=== PATIENT | female | born 1955 | race Caucasian/White ===

== ENCOUNTER → 2019-01-10 | Outpatient (CLI) | payer OTHER ==
[~2019-01-10] MED LIST: ACET325T9 PO; ASCO10002 PO; ASPI-630 PO; ASPI325T11 PO; CALC-463 PO; CALC300T5 PO; CHOL10003 PO; CHOL500016 PO; COLE1TAB2 PO; DICY20TA3 PO; DIPH50CA PO; FERR325T14 PO; FEXO180T16 PO; LEVO25TA4 PO; LOSA-73 PO; MECL25TA3 PO; MELO15TA6 PO; MULT1TAB52 PO; OXYB5TAB7 PO; OXYC1TAB15 PO; SIMV20TA3 PO; [UNRECOGNIZED DRUG - OTHER] PO
[2019-01-10 09:29] LABS: BASO % 0 % (0-3); EOS # 0.2 x10^3/uL (0.0-0.7); EOS % 4 % (0-3); HEMATOCRIT 38.1 % (36.0-47.0); HEMOGLOBIN 12.6 g/dL (12.0-15.5); LYMPH # 2.1 x10^3/uL (1.0-4.8); LYMPH % 35 % (24-48); MEAN CORPUSCULAR HEMOGLOBIN 30 pg (25-35); MEAN CORPUSCULAR HGB CONC 33 g/dL (31-37); MEAN CORPUSCULAR VOLUME 92 fL (79-100); MONO # 0.4 x10^3/uL (0.0-1.1); MONO % 7 % (0-9); NEUT # 3.3 x10^3uL (1.8-7.7); NEUT % 55 % (31-73); PLATELET COUNT 312 x10^3/uL (140-400); RED BLOOD COUNT 4.15 x10^6/uL (3.50-5.40); RED CELL DISTRIBUTION WIDTH 12.8 % (11.5-14.5)
[2019-01-10 09:34] LABS: PROTHROMBIN TIME PATIENT 12.4 SEC (11.7-14.0)
[2019-01-10 09:52] LABS: ALBUMIN 3.9 g/dL (3.4-5.0); CALCIUM 9.2 mg/dL (8.5-10.1); CREATININE 0.9 mg/dL (0.6-1.0); GFR 63.7; POTASSIUM 3.9 mmol/L (3.5-5.1)
--- NOTE | 2019-01-10 13:17 | EKG ---
[facility] [address] [place] [address] Test Date: 2019-01-10 Test Time: 12:57:32 Pat Name: TERESA FLOWERS Department: Room: Gender: F Waiter/Waitress Second Class: : 1955 Requested By: CONNIE HERNANDEZ Order Number: [id number] Reading MD: Adrian Hayes MD Measurements Intervals [place] Rate: 77 P: 54 CA: 162 QRS: 21 QRSD: 78 T: 47 QT: 368 QTc: 418 Interpretive Statements SINUS RHYTHM Electronically Signed On 01-10-2019 15:45:25 CDT by Adrian Hayes MD
[2019-01-10 14:03] LABS: BILIRUBIN,URINE NEGATIVE (NEG); CLARITY,URINE CLEAR; COLOR,URINE YELLOW; NITRITE,URINE NEGATIVE (NEG); PH,URINE 7.5; PROTEIN,URINE NEGATIVE (NEG-TRACE); UROBILINOGEN,URINE 0.2 mg/dL (0.2 mg/dL)
[2019-01-10 14:15] LABS: BACTERIA,URINE 0 /HPF (0-FEW); RBC,URINE 0 /HPF (0-2); SQUAMOUS EPITHELIAL CELL,UR FEW /LPF; WBC,URINE OCC /HPF (0-4)
--- NOTE | 2019-01-10 14:26 | RAD ---
AP and Lateral Views of the Chest 01/10/2019 8:05 AM Indication: PRE OP FOR RIGHT KNEE REPLACMENT ON 02/01/19
HX OF A FIB PATIENT STATES TREATED WITH ABLATION, HX OF HYPERTENSION Comparison: Chest radiograph October 20, 2008 Findings: There is no focal consolidation or infiltrate identified. The cardiomediastinal silhouette is within normal limits. There is no evidence of pneumothorax or pleural effusion. No acute osseous abnormalities are identified. Impression: No evidence of acute cardiopulmonary process. Electronically signed by: Steven Waldron MD (01/10/2019 2:24 PM) [id number]
== END | disposition home or self-care (01) ==
LOC: SURGPAT 14:01
PROVIDERS: ATTEND Orthopaedic Surgery
DX: Z01.818 Encounter for other preprocedural examination (principal); M17.11 Unilateral primary osteoarthritis, right knee; I10 Essential (primary) hypertension
CPT/HCPCS: 36415; 71046; 80048; 81001; 82040; 82306; 85025; 85610; 85651; 85730; 87641; 93005

== ENCOUNTER 2019-02-01 05:53 | Inpatient (IN) | payer OTHER ==
--- NOTE | 2019-01-31 17:49 | PDOC1 ---
History and Physical Date of Admission Date of Admission DATE: 01/31/19 TIME: 17:42 History of Present Illness History of Present Illness 63-year-old woman with bilateral knee pain, right much greater than left, for many years. She said she's had trouble with chondromalacia since her teenage years, but in the last year has had giving way episodes, and fallen down. Sometimes it feels like there is an explosion or a bomb going off in her knee. She's tried Euflexxa injections and steroid injections which helped initially but are no longer helping. She recently had an MRI that shows evidence of osteoarthritis with osteophytes, and cartilage loss as well as a possible degenerative meniscus tear. She was here with her daughter who is also my patient, and the daughter had left knee arthroscopy. (The daughter who is my patient might be Valeria Tolentino). Past Medical History Past Medical History Hypertension. Hyperlipidemia. IBS. Low back pain. Asthma. Arthritis. Atrial fibrillation. vitamin D deficiency. Bilateral chondromalacia Patella. Achilles Injury Rt Foot 1988. Plantar Facitis and Heel spurs . Scoliosis left thoracic/lumbar . Frequent Heartburn. Stress incontinence. Abdominal pain upper Right Quadrant with fatty foods. Fatty Liver with no know cause. Shoulder injury 2008. Mild Carpal Tunnel Syndrome. Injury to right carpometacarpal and wrist joints 2011. Epidermal cyst, Right Big Toe, removed in Jun 2017 and Nov 2018. Tendon injury to Right foot August 2018. Hearing Loss and Tinnitus bilateral ears. Borderline low thyroid. Chronic Dry Eyes, Double vision in each eye. Chronic Sinus Infections. Obesity. Headaches. Hyperopia, presbyopia, beginning cataracts. Tight Hamstrings both legs. History of recurren brochitis, Pneumonia. Seasonal Allergies. Past Surgical History Past Surgical History vein stripping tonsillectomy & adenoidectomy LAVH, BSO toenail removal big toes bilateral breast reduction ablation for Proxysmal Atrial Fibrillation stapedectomy iwth implant left ear 2013 Release plantar Fascitits and heel spur scraping 2017 Family History Family History: Heart Disease Current Medications Current Medications Current Medications Ondansetron HCl (Zofran) 4 mg PRN Q6HRS PRN IV NAUSEA/VOMITING; Start 02/01/19 at 07:00; Stop 02/01/19 at 20:00 Fentanyl Citrate (Fentanyl 2ml Vial) 25 mcg PRN Q5MIN PRN IV MILD PAIN; Start 02/01/19 at 07:00; Stop 02/01/19 at 20:00 Fentanyl Citrate (Fentanyl 2ml Vial) 50 mcg PRN Q5MIN PRN IV MODERATE TO SEVERE PAIN; Start 02/01/19 at 07:00; Stop 02/01/19 at 20:00 Morphine Sulfate (Morphine Sulfate) 1 mg PRN Q10MIN PRN IV SEVERE PAIN; Start 02/01/19 at 07:00; Stop 02/01/19 at 20:00 Ringer's Solution 1,000 ml @ 30 mls/hr Q24H IV ; Start 02/01/19 at 07:00; Stop 02/01/19 at 18:59 Lidocaine HCl (Xylocaine-Mpf 1% 2ml Vial) 2 ml PRN 1X PRN ID IV START; Start 02/01/19 at 07:00; Stop 02/01/19 at 20:00 Hydromorphone HCl (Dilaudid) 0.5 mg PRN Q10MIN PRN IV SEV PAIN, Second choice; Start 02/01/19 at 07:00; Stop 02/01/19 at 20:00 Prochlorperazine Edisylate (Compazine) 5 mg PACU PRN PRN IV NAUSEA, MRX1; Start 02/01/19 at 07:00; Stop 02/01/19 at 20:00 Morphine Sulfate 5 mg/Ketorolac Tromethamine 30 mg/Ropivacaine 60 ml/Epinephrine HCl 0.5 mg/Sodium Chloride 100 ml @ 100 mls/hr 1X ONCE INT ART ; Start 02/01/19 at 06:00; Stop 02/01/19 at 06:59 Active Scripts Active Reported [selenium husk] 1 Cap PO DAILY Dicyclomine Hcl 20 Mg Tablet 20 Mg PO PRN QID PRN Ferrous Sulfate 325 Mg Tablet 325 Mg PO DAILY Tums (Calcium Carbonate) 300 Mg Tab.chew 300 Mg PO PRN DAILY PRN Calcium + Vitamin D3 Gummies (Calcium Phosphate Trib/Vit D3) 1 Each Tab.chew 1 Each PO HS Simvastatin 20 Mg Tablet 20 Mg PO HS Oxybutynin Chloride 5 Mg Tablet 2.5 Mg PO BID Fexofenadine Hcl 180 Mg Tablet 180 Mg PO DAILY Losartan Potassium 50 Mg Tablet 25 Mg PO DAILY Diphenhydramine Hcl 50 Mg Capsule 25 Mg PO QHS Levothyroxine Sodium 25 Mcg Tablet 0.5 Tab PO DAILYAC Tylenol (Acetaminophen) 325 Mg Tablet 1,000 Mg PO BID Vitamin D3 (Cholecalciferol (Vitamin D3)) 1,000 Unit Tablet 3,000 Unit PO HS Vitamin D3 (Cholecalciferol (Vitamin D3)) 5,000 Unit Tablet 6,000 Unit PO DAILY Vitamin C (Ascorbic Acid) 1,000 Mg Tablet 1,000 Mg PO DAILY Multivitamins (Multivitamin) 1 Each Tablet 1 Each PO DAILY Aspirin 81 Mg Tab.chew 81 Mg PO HS Colestipol Hcl 1 Gm Tablet 1 Gm PO PRN TID PRN Meclizine Hcl 25 Mg Tablet 25 Mg PO PRN PRN Allergies Allergies: Coded Allergies: minocycline (Verified Allergy, Severe, 01/10/19) difficulty breathing rhubarb (Verified Allergy, Severe, Swelling, 01/10/19) tetracycline (Verified Allergy, Severe, 01/10/19) cant breathe adhesive tape (Verified Allergy, Intermediate, Rash, 01/11/19) blisters amoxicillin (Verified Allergy, Intermediate, Hives, 01/10/19) latex (Verified Allergy, Intermediate, Rash, 01/11/19) blistyers loratadine (Verified Allergy, Intermediate, Rash, 01/11/19) nickel (Verified Allergy, Intermediate, Rash, 01/11/19) I S O L A T I O N *CONTACT* (Verified Allergy, Unknown, 01/11/19) mrsa Sulfa (Sulfonamide Antibiotics) (Verified Adverse Reaction, Intermediate, flu like symptoms, 01/11/19) flu like symptoms cetirizine (Verified Adverse Reaction, Intermediate, palpitations, 01/11/19) aplpitations fluticasone (Verified Adverse Reaction, Intermediate, 01/10/19) develops secondary infection furosemide (Verified Adverse Reaction, Intermediate, Nausea and Vomiting, 01/10/19) nebivolol (Verified Adverse Reaction, Intermediate, 01/10/19) muscle weakness-loss of balance prednisone (Verified Adverse Reaction, Intermediate, 01/10/19) develops secondary infection ROS Review of System CONSTITUTIONAL: Fever denies. Chills denies. Weight gain denies. Weakness none. weight loss denies. Fatigue none. OPHTHALMOLOGY: Blurred vision both eyes double vision, blurred vision. Double vision denies. Change in vision none. ENT: Hearing loss bilateral ears. Change in voice denies. Rhinorrhea none. CARDIOLOGY: Palpitations occasionally. Shortness of breath denies. Chest pain denies. GASTROENTEROLOGY: Diarrhea denies. Vomiting none. Dysphagia none. UROLOGY: Voiding normally yes. Hematuria none. MUSCULOSKELETAL: Chronic back or neck pain admit. Swelling of the feet, hands, ankles and /or legs admits. Joint pain ankle, knee, foot, bilateral. DERMATOLOGY: Rash denies. Lumps none. NEUROLOGY: Dizziness/lightheadedness admits. Double vision, temporary blindness admits. Tingling/numbness none. PSYCHOLOGY: Change in mood or personality denies. Memory loss none. ENDOCRINOLOGY: Obesity denies. Fatigue none. Weight loss none. HEMATOLOGY/LYMPH: Hepatitis denies. Enlarged lymph nodes denies. Physical Exam General: Alert, Cooperative HEENT: Atraumatic Lungs: Normal air movement Heart: RRR Extremities: No clubbing, No cyanosis, Normal pulses Skin: No rashes, No significant lesion Neuro: Normal speech, Sensation intact, Other (RIGHT knee shows normal alignment, no masses. There is no effusion. There is tenderness at the medial joint line. Marco A's test is positive. There is medial joint line pain with deep flexion and especially with rotation of the tibia. There is severe tenderness of the lateral aspect of the patella. The lateral tibiofemoral joint line shows no tenderness. Range of motion is 0-135 degrees. There is trace patellofemoral crepitus. The knee is stable to varus and valgus stress without subluxation or laxity. The ACL feels intact on Zachary testing. Muscle strength is normal (5/5) for quadriceps and hamstrings, and muscle tone is normal. The skin is normal with no scars, rashes, lesions or ulcers. Light touch sensation is intact. No edema and no varicosities. Dorsalis pedis pulse is intact and capillary refill is normal.) Images Images MRI right knee images reviewed independently from 11/02/18. There appears to be an extensive horizontal medial meniscus tear on series 7 image 10. Similar horizontal signal, probably involves the undersurface, on series 4 image 6. There is significant femoral cartilage loss on series 7 image 15. The axial images show significant patellar chondral malacia and cyst formation in the patella. Medial and lateral femoral and tibial osteophytes are seen on series 6 image 13. VTE Prophylaxis Ordered VTE Prophylaxis Devices: Yes VTE Pharmacological Prophylaxi: Yes Assessment/Plan Assessment/Plan We talked about options for treatment for her knee pain. We discussed arthroscopic meniscectomy, vs TKA. She does have a degenerative medial meniscus tear. She also has knee osteoarthritis. She is 63 years old, and now having giving way episodes of the knee. We discussed arthroscopy which would have risks of further progression of arthritis and need for further surgery specifically would likely eventually need a joint replacement, sometimes within a year of the arthroscopy, more likely about 5 years later. We discussed total knee arthroplasty, and foregoing any significant complications is less likely to need additional surgery. she has a nickel sensitivity especially wearing earrings, and so I would use an Oxinium component, with XLPE which is marketed as a "30 year knee". it's not been out for 30 years but the lab tests seem to indicate it should last many years and presumably for the rest of her life. We discussed the potential risks of infection, neurovascular injury, bleeding, blood clots, need for revision surgery, or other potential surgical or anesthetic complications. All her questions about knee replacement surgery were answered and she desires to proceed mutually convenient date. She had a prior cardiac ablation for atrial fibrillation and is no longer on treatment for A. fib but probably needs cardiac clearance. She has a CT scan planned for her sinuses, and if she has sinus surgery we will need to manage her antibiotics and perioperative care appropriately, around any potential sinus surgery. She had a vein stripping remotely, but denies any history of blood clots. CONNIE HERNANDEZ MD Jan 31, 2019 17:49
[~2019-02-01] VITALS: Ht 165.1 cm; Wt 108.4 kg
[2019-02-01] VITALS (8 sets, daily range): BP systolic 113–128; BP diastolic 52–72
[~2019-02-01 05:53] MED LIST changes: -ASPI325T11 PO; -MELO15TA6 PO; -OXYC1TAB15 PO; +TOBRAMYCIN POWDER 1.2 GM VIAL. ONE; +VANCOMYCIN 1 GM VIAL. ONE
[2019-02-01] MEDS ORDERED: TRANEXAMIC ACID 1,000 MG in IV NS 50ML -- 1ST BAG INJ ONE (06:00)
[2019-02-01] MEDS ORDERED: MORPHINE SULFATE 5 MG, KETOROLAC 30MG VIAL 30 MG, ROPIVacaine 0.5% PF 60 ML, EPINEPHrin... INT ART ONE ×5 (06:00)
[2019-02-01] MEDS ORDERED: CLINDAMYCIN 900MG PREMIX 50 ML IV PRN (06:00)
[2019-02-01] MEDS ORDERED: MELOXICAM 7.5 MG TABLET PO PRN (06:00)
[2019-02-01] MEDS ORDERED: MELO15TA6 PO (06:39)
[2019-02-01] MEDS ORDERED: SCOPOLAMINE 1.5MG PATCH. TD ONE ×2 (06:44→07:00)
[2019-02-01] MEDS: HYDROcodone/APAP 7.5/325MG 1 TAB TABLET PO PRN ×2 (06:46→12:49)
[2019-02-01] MEDS ORDERED: PROPOFOL 20 ML IV ONE (06:49)
[2019-02-01] MEDS ORDERED: LIDOCAINE 2% PF 5 ML VIAL. ONE (06:49)
[2019-02-01] MEDS ORDERED: ONDANSETRON PF 4 MG/2 ML VIAL. ONE (06:49)
[2019-02-01] MEDS ORDERED: DEXAMETHASONE SOD PHOS 4 MG/ML VIAL ONE ×2 (06:49→07:59)
[2019-02-01] MEDS ORDERED: fentaNYL PF VIAL 100 MCG/2 ML VIAL ONE ×3 (06:49→10:28)
[2019-02-01] MEDS ORDERED: MIDAZOLAM HCL/PF 2 MG/2 ML VIAL. ONE (06:49)
[2019-02-01] MEDS ORDERED: MORPHINE SULFATE 2 MG/ML VIAL. IV PRN ×2 (07:00→10:00)
[2019-02-01] MEDS ORDERED: SCOPOLAMINE 1.5MG PATCH. TD SCH (07:00)
[2019-02-01] MEDS ORDERED: HYDROmorphone 2 MG/ML VIAL IV PRN (07:00)
[2019-02-01] MEDS ORDERED: IV RINGERS,LACTATED 1000ML 1,000 ML IV SCH (07:00)
[2019-02-01] MEDS ORDERED: LIDOCAINE 1% PF 2 ML VIAL. ID PRN (07:00)
[2019-02-01] MEDS ORDERED: ONDANSETRON PF 4 MG/2 ML VIAL. IV PRN (07:00)
[2019-02-01] MEDS ORDERED: fentaNYL PF VIAL 100 MCG/2 ML VIAL IV PRN ×3 (07:00→10:00)
[2019-02-01] MEDS ORDERED: PROCHLORPERAZINE 10 MG/2 ML VIAL. IV PRN (07:00)
[2019-02-01] MEDS: VANCOMYCIN 1GM IVPB FOR OMNI 250 ML IV PRN ×2 (07:47)
[2019-02-01] MEDS ORDERED: ePHEDrine PF IN SALINE 50 MG/10 ML SYRINGE. IV ONE (07:49)
[2019-02-01] MEDS ORDERED: TRANEXAMIC ACID 1,000 MG in IV NS 50ML -- 2ND BAG INJ ONE (08:00)
[2019-02-01] MEDS ORDERED: hydrALAZINE 20 MG/ML VIAL. ONE (08:55)
--- NOTE | 2019-02-01 09:52 | PDOC4 ---
Operative Note Operative Note Date of Procedure: February 01, 2019 Pre-Op Diagnosis: M17.11 Unilateral primary osteoarthritis, right knee Post-Op Diagnosis: same Procedure: CPT 14463 right total knee arthroplasty with patella resurfacing Surgeon: Connie Miles MD Quality Controller: OLIVIA Nicholson Anesthesia: General EBL: 100 mL Specimens Obtained: right knee bone and soft tissue Complications: none Implant Company: [employer] Drains: hemovac plus pain catheter Tourniquet time: 59 Minutes Tourniquet Pressure: 350 mm Hg Indications for Procedure: Arthritis pain unrelieved by nonoperative management including cortisone injections. She had an MRI which showed a degenerative meniscus tear, and primary osteoarthritis. We discussed arthroscopic management with the risk of progression of arthritis requiring ultimate total knee replacement later in life, perhaps in 5-10 years, sometimes sooner. She did not want to take the chance that she would need a second surgery after arthroscopy, and wants to proceed with total knee arthroplasty now rather than later in life. Findings: Osteoarthritis, with full thickness cartilage loss and eburnated bone at the patellofemoral joint, moderate cartilage loss at the medial femoral condyle and moderate cartilage loss at the lateral tibial articular surface. Implants used: Size 4 right bicruciate stabilized Journey II BCS Oxinium femoral component, size 4 right Journey nonporous tibial baseplate, size 3-4 10 mm right Journey II BCS XLPE articular insert, 35 mm oval Ariane II resurfacing patellar component Procedure in Detail: The patient was identified in the preoperative holding area, and the correct right lower extremity was marked by me. The patient was taken to the operating room where the patient was anesthetized by the Department of Anesthesia. Preoperative antibiotics were given intravenously. Tranexamic acid 1 g was given intravenously for intraoperative hemostasis. A "time-out" procedure was performed. The patient was positioned supine on the operative table with a tourniquet on the upper right thigh. The right lower limb was thoroughly scrubbed, then sterile surgical prep solution was applied, and the limb was draped in sterile fashion. An impervious stockinet and adhesive drape were used such that the skin was entirely covered. An Maradiaga leg bob was used. The operating team wore personal exhaust-ventilated hoods. The limb exsanguinated with an Esmarch bandage, and the tourniquet was inflated. A midline skin incision was made with a scalpel using the patella and tibial tubercle as landmarks. Electrocautery was used for hemostasis. My assistant center director used rake retractors. A medial parapatellar arthrotomy incision was used with extension into the distal quadriceps tendon. The patella was retracted laterally and Hohmann retractors were now used by my assistant center director. Excess synovium, the menisci, and the cruciate ligaments were resected sharply. The patella was assessed and excess s ynovium and osteophytes around the patellar articulation were removed. The patella was measured with a caliper, cut freehand with a saw using caliper measurements, sized, and then drilled for an oval three-pegged patella component. A periarticular multimodal ropivacaine anesthetic injection was used in the suprapatellar pouch and distal quadriceps muscle. Whitesides's line and the transepicondylar axis were marked on the femur. An intra-medullary 5 degree cutting guide was pinned to the femur, and a distal femoral cut was made with an oscillating saw. An additional 2 mm resection was used due to the deep femoral sulcus, and deficient condyle. My assistant center director held Hohmann retractors and an [employer] retractor to protect the medial and lateral collateral ligaments, the patellar tendon, the skin and the other soft tissues. A posterior referencing guide was applied with external rotation of 3 to match Whitesides line. A 5-in-1 Journey II cutting guide was then applied and pinned to the femur. The posterior, anterior, and all chamfer cuts were made with the oscillating saw. An extramedullary guide was pinned to the tibia and rotational alignment and the planned resection thickness assessed. An external alignment nyla was used to verify the planned cut in the varus-valgus plane and regarding posterior slope referencing the tibial tubercle, the tibial shaft, the ankle joint, and the s econd metatarsal. The upper tibia was cut made with an oscillating saw. My assistant center director held Hohmann retractors and a posterior cruciate ligament retractor to protect the medial and lateral collateral ligaments, the patellar tendon, the skin, the peroneal nerve and the other soft tissues. The upper tibia was sized with a trial baseplate. The posterior compartment was cleared of osteophytes and loose bodies. The periarticular anesthetic injection was used in the posterior compartment. The box cut for a posterior stabilized component was made. A preliminary reduction was performed with a trial femur, trial tibial baseplate and trial polyethylene. Soft-tissue balancing was now performed, and extension and rotation of the alignments was checked using a guide nyla in the tibial trial and a guide pin in the femur. A medial release was required, using a 10 blade scalpel, and a Vincent elevator to elevate the medial structures from the upper medial tibia. The stability was assessed using different thicknesses of tibial articular surface to find satisfactory stability and good range of motion. The rotation of the tibial component was marked on the upper tibia. Final trial reduction was now performed verifying patella tracking and tibiofemoral stability and alignment. The tibia preparation was completed with a drill, saw, and fin punch at the previously noted rotation. The final implants were verified and opened. Outer gloves were changed by the operating team. The bone cuts were washed thoroughly with the [employer] ([employer] InterPulse device and dried. Two packages of Perez [employer] Nephew Rally HV bone cement were mixed in powdered form with Vancomycin 1gm and Tobramycin 1.2 gm, and then vacuum-mixed with the monomer, and placed into a cement gun. The cut surfaces of the bone were tho roughly dried with Mast-tip suction and with laparotomy sponges for cement interdigitation. The final components were cemented into place. The knee was kept at full extension while the cement hardened, and excess cement was removed. A Betadine lavage was used throughout the surgical exposure, and allowed to sit in contact with the exposed joint surfaces for three minutes while the cement hardened. Tranexamic acid 1 g was redosed intravenously for additional intraoperative hemostasis. The tourniquet was released, and electrocautery was used for hemostasis. A final periarticular anesthetic injection was used for pain relief. A final check of [id number] and stability was made, and the polyethylene implant final size was chosen. The polyethylene implant was secured to the tibial baseplate, and the knee was reduced a final time and range of motion and stability was confirmed. Thorough irrigation was used. Hemovac and pain catheter were used.The arthrotomy was closed with interrupted [id number] #1 PDS suture. The arthrotomy incision was then run with #1 STRATAFIX Symmetric PDS Plus Knotless suture. The subcutaneous tissues were reapproximated initially with 2-0 PDS . Next the subcuticular layer was reapproximated in a running fashion with #3-0 Stratafix suture by my assistant center director. The skin incision was then covered and reinforced with Acticoat, followed by a NADINE single use negative pressure wound therapy dressing Soft roll and an Kishan wrap were applied. Needle and sponge counts were correct. There were no apparent complications. The patient returned to the recovery room in stable condition. CONNIE MILES MD Feb 01, 2019 09:52
[2019-02-01] MEDS ORDERED: METOCLOPRAMIDE HCL 10 MG/2 ML VIAL. IV PRN (10:00)
[2019-02-01] MEDS ORDERED: COLESTIPOL HCL 1 GM TABLET PO PRN (10:00)
[2019-02-01] MEDS ORDERED: ZOLPIDEM 5 MG TABLET. PO PRN (10:00)
[2019-02-01] MEDS ORDERED: 0.9 % SODIUM CHLORIDE 10 ML DISP.SYRIN. IV PRN (10:00)
[2019-02-01] MEDS ORDERED: diphenhydrAMINE 50 MG/ML VIAL IV PRN (10:00)
[2019-02-01] MEDS ORDERED: PROCHLORPERAZINE 5 MG TABLET. PO PRN (10:00)
[2019-02-01] MEDS ORDERED: MORPHINE SULFATE 4 MG/ML VIAL. IV PRN (10:00)
[2019-02-01] MEDS ORDERED: DEXTROSE 50% 25 GM / 50ML DISP.SYRIN. IV PRN (10:00)
[2019-02-01] MEDS ORDERED: CALCIUM CARBONATE 500 MG TAB.CHEW PO PRN (10:30)
[2019-02-01] MEDS: fentaNYL PF VIAL 100 MCG/2 ML VIAL IV PRN ×2 (10:38→11:14)
[2019-02-01] MEDS ORDERED: DICYCLOMINE HCL 10 MG CAPSULE PO PRN (10:45)
--- NOTE | 2019-02-01 11:30 | NUR ---
Arrived to unit by bed from PACU. Alert and oriented x's 4. Very [place] wears hearing aids and family has them. No c/o at this time. Right total knee dressing d/i with NADINE, IAC and hemovac drain intact. O2 at 2l per n/c. IVF's intact and infusing. ELISSA and SCD on left leg and INÉS on right foot. Oriented to room and controls with side rails up x's 2 with call light in reach. Spouse and daughter at bedside. Cont. monitor.
--- NOTE | 2019-02-01 11:34 | RAD ---
Examination: 2 views of the right knee HISTORY: History of total knee replacement COMPARISON: None available. FINDINGS: Total knee arthroplasty changes in normal alignment. Postoperative air identified about the knee joint with postsurgical changes identified in the posterior patella. A drain tubing projects in the knee joint. IMPRESSION: Total knee arthroplasty changes in normal alignment Electronically signed by: Kang Irvin MD (02/01/2019 10:43 AM) [id number]
[2019-02-01] MEDS ORDERED: MECLIZINE HCL 12.5 MG TABLET. PO PRN (12:00)
[2019-02-01] MEDS: ONDANSETRON ODT 4 MG TAB.RAPDIS. PO SCH ×2 (12:00→17:29)
[2019-02-01] MEDS: ONDANSETRON PF 4 MG/2 ML VIAL. IV SCH ×2 (12:00→17:35)
[2019-02-01] MEDS: CLINDAMYCIN 900MG PREMIX 50 ML IV SCH ×2 (13:47→20:19)
[2019-02-01] MEDS: oxyCODONE/APAP 5/325 1 TAB TABLET PO PRN ×2 (14:54→22:25)
[2019-02-01] MEDS: KETOROLAC 30MG VIAL 30 MG, BUPIVACAINE MPF 0.25% 20 ML, EPINEPHrine 0.5 MG in TOTAL VOL... INT ART SCH (17:29)
[2019-02-01] MEDS: FERROUS SULFATE 325 MG TABLET. PO SCH (17:29)
[2019-02-01] MEDS: IV NORMAL SALINE 1000ML BAG 1,000 ML IV SCH (20:21)
[2019-02-01] MEDS ORDERED: diphenhydrAMINE HCL 25 MG CAPSULE PO SCH (21:00)
[2019-02-01] MEDS: OXYBUTYNIN CHLORIDE 5 MG TABLET PO SCH (21:23)
[2019-02-01] MEDS: SIMVASTATIN 20 MG TABLET PO SCH (21:24)
[2019-02-01] MEDS: ASPIRIN ENTERIC COATED 325 MG TABLET.DR. PO SCH (21:24)
[2019-02-01] MEDS: CHOLECALCIFEROL (VITAMIN D3) 1,000 UNIT TABLET PO SCH (21:24)
[2019-02-01] MEDS: CALCIUM CARB/VIT D3 500/200 TABLET. PO SCH (21:24)
[2019-02-02] MEDS: CLINDAMYCIN 900MG PREMIX 50 ML IV SCH (01:32)
--- NOTE | 2019-02-02 02:54 | NUR ---
when assisting patient to bathroom found hemovac in bed tip intact
[2019-02-02 03:00] VITALS: BP 105/51
[2019-02-02] MEDS: KETOROLAC 30MG VIAL 30 MG, BUPIVACAINE MPF 0.25% 20 ML, EPINEPHrine 0.5 MG in TOTAL VOL... INT ART SCH (05:35)
[2019-02-02] MEDS: LEVOTHYROXINE 25 MCG TABLET. PO SCH (05:35)
[2019-02-02] MEDS: ONDANSETRON PF 4 MG/2 ML VIAL. IV SCH ×2 (06:00)
[2019-02-02] MEDS: ONDANSETRON ODT 4 MG TAB.RAPDIS. PO SCH ×2 (06:00)
[2019-02-02] MEDS ORDERED: MAGNESIUM HYDROXIDE 2,400 MG/30 ML ORAL.SUSP. PO PRN (06:00)
[2019-02-02 06:48] VITALS: BP 105/55
--- NOTE | 2019-02-02 07:53 | PDOC ---
ORTHO PROGRESS NOTES Subjective Patient doing well sitting up in chair at bedside with no major complaints of pain at this time. Post-op Day: 1 Procedure R TKA Vitals Vital Signs Date Time Temp Pulse Resp B/P (MAP) Pulse Ox O2 Delivery O2 Flow Rate FiO2 02/02/19 06:48 98.6 70 105/55 (72) 96 Room Air 98.6 02/01/19 23:30 18 02/01/19 18:18 2.0 Notes awake and alert Assessment and Plan POD #1 S/P R TKA motor and sensory intact distally dressing dry and intact PT today JAYDON LAZARO APRN February 02, 2019 07:53
[2019-02-02] MEDS: SENNOSIDES/DOCUSATE 8.6/50MG TABLET. PO SCH (08:41)
[2019-02-02] MEDS: ASCORBIC ACID 500 MG TABLET PO SCH (08:41)
[2019-02-02] MEDS: PSYLLIUM HUSK (SUGAR FREE) 1 PKT PACKET PO SCH (08:41)
[2019-02-02] MEDS: OXYBUTYNIN CHLORIDE 5 MG TABLET PO SCH ×2 (08:42→20:54)
[2019-02-02] MEDS: FERROUS SULFATE 325 MG TABLET. PO SCH ×2 (08:42→16:05)
[2019-02-02] MEDS: MELOXICAM 7.5 MG TABLET PO SCH (08:42)
[2019-02-02] MEDS: MULTIVITAMIN with MINERAL TABLET. PO SCH (08:42)
[2019-02-02] MEDS: CHOLECALCIFEROL (VITAMIN D3) 5,000 UNIT CAPSULE PO SCH (08:43)
[2019-02-02] MEDS: ASPIRIN ENTERIC COATED 325 MG TABLET.DR. PO SCH ×2 (08:43→20:57)
[2019-02-02] MEDS: LOSARTAN POTASSIUM 25 MG TABLET. PO SCH (08:43)
[2019-02-02] MEDS ORDERED: NON FORMULARY ITEM (Fexofenadine Hcl 180 MG) PO SCH (09:00)
[2019-02-02] MEDS: diphenhydrAMINE HCL 25 MG CAPSULE PO SCH ×2 (09:49→20:54)
[2019-02-02] MEDS: IV NORMAL SALINE 1000ML BAG 1,000 ML IV SCH (09:55)
[2019-02-02 10:20] LABS: HEMATOCRIT 32.9 % (36.0-47.0); HEMOGLOBIN 10.8 g/dL (12.0-15.5)
[2019-02-02] MEDS ORDERED: ONDANSETRON ODT 4 MG TAB.RAPDIS. PO PRN (12:00)
[2019-02-02] MEDS ORDERED: ONDANSETRON PF 4 MG/2 ML VIAL. IV PRN (12:00)
[2019-02-02] MEDS: oxyCODONE/APAP 5/325 1 TAB TABLET PO PRN ×2 (12:45→19:37)
[2019-02-02] MEDS ORDERED: BISACODYL 10 MG SUPP.RECT. PR PRN (16:00)
--- NOTE | 2019-02-02 16:35 | NUR ---
After afternoon therapy the patients RAJANI wrap was removed over the NADINE dressing on her knee and the patients IAC was discontinued. Upon assessment it was noted that the hemovac site, in which the hemovac was dislodged this morning, did not have a dressing covering the site other than the RAJANI wrap and was still bleeding slightly. Direct pressure was put on the site and a dry dressing was applied over the IAC site as well. No other concerns noted at this time. NADINE dressing dry/intact and working properly. Will continue to monitor.
[2019-02-02 17:49] VITALS: BP 124/49
--- NOTE | 2019-02-02 18:06 | PATHOLOGY ---
[facility] Accession Number: [id number] . 01 Material submitted: . knee - RIGHT KNEE BONE AND SOFT TISSUE. Modifiers: right . 01 Clinical history: . Osteoarthritis . 02 Diagnosis: Segments of bone and soft tissue, right total knee arthroplasty: - Degenerative arthritis. (JPM:[facility] 02/02/2019) QTP/02/02/2019 . 02 Electronically signed: . Remingotn Andrade MD, Pathologist NPI- [id number] . 01 Gross description: . The specimen is received in formalin, labeled "Goll, Marissa, right knee bone and soft tissue" and consists of multiple segments of caruso bone including the tibial plateau and yellow-orange lobulated soft tissue measuring 15.5 x 11.9 x 3.0 cm in aggregate. The meniscus is present. The articular surfaces are caruso-pink and roughened/granular. No eburnation is grossly identified. [employer] Salesperson sections are submitted in A1 following decalcification. (SDY; 02/01/2019) SYU/SYU . 02 Pathologist provided ICD-10: M17.11 . 02 CPT . 948739, [id number] Specimen Comment: A courtesy copy of this report has been sent to Specimen Comment: [phone], . Specimen Comment: Report sent to / DR NAVARRO Performed at: 01 [facility] [address], [place] [id number] MD Jacek Donnelly MD Phone: [phone] Performed at: 02 [facility] [address] [place], [place] [id number] MD Remington Andrade MD Phone: [phone]
[2019-02-02] MEDS: CALCIUM CARB/VIT D3 500/200 TABLET. PO SCH (20:54)
[2019-02-02] MEDS: SIMVASTATIN 20 MG TABLET PO SCH (20:54)
[2019-02-02] MEDS: CHOLECALCIFEROL (VITAMIN D3) 1,000 UNIT TABLET PO SCH (20:54)
[2019-02-03] MEDS: oxyCODONE/APAP 5/325 1 TAB TABLET PO PRN ×4 (03:57→16:57)
[2019-02-03 05:24] LABS: HEMATOCRIT 31.4 % (36.0-47.0); HEMOGLOBIN 10.4 g/dL (12.0-15.5)
[2019-02-03 06:19] VITALS: BP 114/56
[2019-02-03] MEDS: LEVOTHYROXINE 25 MCG TABLET. PO SCH (06:22)
[2019-02-03] MEDS: diphenhydrAMINE HCL 25 MG CAPSULE PO SCH ×2 (09:00→21:06)
[2019-02-03] MEDS: PSYLLIUM HUSK (SUGAR FREE) 1 PKT PACKET PO SCH (09:16)
[2019-02-03] MEDS: MELOXICAM 7.5 MG TABLET PO SCH (09:16)
[2019-02-03] MEDS: CHOLECALCIFEROL (VITAMIN D3) 5,000 UNIT CAPSULE PO SCH (09:17)
[2019-02-03] MEDS: MULTIVITAMIN with MINERAL TABLET. PO SCH (09:17)
[2019-02-03] MEDS: ASPIRIN ENTERIC COATED 325 MG TABLET.DR. PO SCH ×2 (09:17→21:06)
[2019-02-03] MEDS: FERROUS SULFATE 325 MG TABLET. PO SCH ×2 (09:17→16:55)
[2019-02-03] MEDS: SENNOSIDES/DOCUSATE 8.6/50MG TABLET. PO SCH (09:17)
[2019-02-03] MEDS: ASCORBIC ACID 500 MG TABLET PO SCH (09:17)
[2019-02-03] MEDS: OXYBUTYNIN CHLORIDE 5 MG TABLET PO SCH ×2 (09:20→21:06)
[2019-02-03] MEDS: LOSARTAN POTASSIUM 25 MG TABLET. PO SCH (09:21)
[2019-02-03 09:24] VITALS: BP 134/62
[2019-02-03] MEDS: CALCIUM CARBONATE 500 MG TAB.CHEW PO PRN ×2 (11:57→12:50)
--- NOTE | 2019-02-03 13:15 | PDOC ---
PROGRESS NOTES Subjective Subjective Pain controlled. No major complaints. Objective Vital Signs Vital Signs Date Time Temp Pulse Resp B/P (MAP) Pulse Ox O2 Delivery O2 Flow Rate FiO2 02/03/19 09:24 75 20 134/62 (86) Room Air 02/03/19 06:19 98.9 94 98.9 02/01/19 18:18 2.0 Physical Exam Postop dressing and pain catheter have been removed. Spotty bloody drainage o nly. Calf soft and nontender but does report some calf pain. Good AROM of ankle. Minimal erythema/warmth. Not yet safely ambulating with walker. Requires PT or nursing assistance, and gait belt for safe transition from chair or bed to walker. Labs Laboratory Tests Test 02/02/19 08:40 02/03/19 03:47 Hemoglobin 10.8 g/dL (12.0-15.5) 10.4 g/dL (12.0-15.5) Hematocrit 32.9 % (36.0-47.0) 31.4 % (36.0-47.0) Mean Corpuscular Hemoglobin Concent 33 g/dL (31-37) 33 g/dL (31-37) Laboratory Tests Test 02/03/19 03:47 Hemoglobin 10.4 g/dL (12.0-15.5) Hematocrit 31.4 % (36.0-47.0) Mean Corpuscular Hemoglobin Concent 33 g/dL (31-37) Imaging Postoperative x-rays and report reviewed by me and show satisfactory alignment and no apparent complications. Assessment Assessment POD #2 TKA Plan Plan of Care Continue POC. Will reassess calf pain tomorrow and consder Doppler if it persists. Discharge planning for tomorrow. Aspirin 325 mg po BID and mobilization for DVT prophylaxis. CONNIE HERNANDEZ MD February 03, 2019 13:15
--- NOTE | 2019-02-03 15:50 | NUR ---
hai is doing well. pain controlled with oral medications. tolerated both rehab sessions. tolerating diet fair; she has had several episodes of heartburn.
[2019-02-03 17:58] VITALS: BP 136/69
[2019-02-03] MEDS: CHOLECALCIFEROL (VITAMIN D3) 1,000 UNIT TABLET PO SCH (21:06)
[2019-02-03] MEDS: SIMVASTATIN 20 MG TABLET PO SCH (21:06)
[2019-02-03] MEDS: CALCIUM CARB/VIT D3 500/200 TABLET. PO SCH (21:06)
[2019-02-04] MEDS: oxyCODONE/APAP 5/325 1 TAB TABLET PO PRN ×4 (03:04→17:29)
[2019-02-04 06:24] VITALS: BP 130/68
[2019-02-04] MEDS: LEVOTHYROXINE 25 MCG TABLET. PO SCH (06:26)
[2019-02-04 07:43] LABS: HEMATOCRIT 31.3 % (36.0-47.0); HEMOGLOBIN 10.3 g/dL (12.0-15.5)
[2019-02-04 08:26] VITALS: BP 128/62
[2019-02-04] MEDS: OXYBUTYNIN CHLORIDE 5 MG TABLET PO SCH (08:29)
[2019-02-04] MEDS: SENNOSIDES/DOCUSATE 8.6/50MG TABLET. PO SCH (08:29)
[2019-02-04] MEDS: CHOLECALCIFEROL (VITAMIN D3) 5,000 UNIT CAPSULE PO SCH (08:29)
[2019-02-04] MEDS: FERROUS SULFATE 325 MG TABLET. PO SCH ×2 (08:29→16:56)
[2019-02-04] MEDS: MELOXICAM 7.5 MG TABLET PO SCH (08:29)
[2019-02-04] MEDS: MULTIVITAMIN with MINERAL TABLET. PO SCH (08:29)
[2019-02-04] MEDS: ASCORBIC ACID 500 MG TABLET PO SCH (08:29)
[2019-02-04] MEDS: LOSARTAN POTASSIUM 25 MG TABLET. PO SCH (08:30)
[2019-02-04] MEDS: ASPIRIN ENTERIC COATED 325 MG TABLET.DR. PO SCH (08:30)
[2019-02-04] MEDS: PSYLLIUM HUSK (SUGAR FREE) 1 PKT PACKET PO SCH (08:30)
[2019-02-04] MEDS: diphenhydrAMINE HCL 25 MG CAPSULE PO SCH (08:34)
--- NOTE | 2019-02-04 09:00 | NUR ---
up in recliner medigrips removed in prep for shower. reviewed care for the NADINE dressing on Thursday; verbalized understanding.
--- NOTE | 2019-02-04 11:00 | NUR ---
complains right calf tenderness with ambulation. negative Homans's .
--- NOTE | 2019-02-04 12:09 | PDOC ---
PROGRESS NOTES Subjective Subjective No complaints. Planning on discharge today to home. Objective Vital Signs Vital Signs Date Time Temp Pulse Resp B/P (MAP) Pulse Ox O2 Delivery O2 Flow Rate FiO2 02/04/19 10:17 20 02/04/19 08:30 73 128/62 02/04/19 08:26 95 Room Air 02/04/19 06:24 98.7 98.7 02/01/19 18:18 2.0 Physical Exam NADINE intact and dry. Good AROM ankle. Calf soft and nontender. Minimal warmth or erythema. Labs Laboratory Tests Test 02/03/19 03:47 02/03/19 16:27 02/04/19 07:27 Hemoglobin 10.4 g/dL (12.0-15.5) 10.3 g/dL (12.0-15.5) Hematocrit 31.4 % (36.0-47.0) 31.3 % (36.0-47.0) Mean Corpuscular Hemoglobin Concent 33 g/dL (31-37) 33 g/dL (31-37) Glucose (Fingerstick) 108 mg/dL (70-99) Laboratory Tests Test 02/03/19 16:27 02/04/19 07:27 Glucose (Fingerstick) 108 mg/dL (70-99) Hemoglobin 10.3 g/dL (12.0-15.5) Hematocrit 31.3 % (36.0-47.0) Mean Corpuscular Hemoglobin Concent 33 g/dL (31-37) Assessment Assessment POD #3 TKA Plan Plan of Care Discharge planning for today. Continue PT and DVT prophylaxis. F/U 10-14 days in office. CONNIE HERNANDEZ MD February 04, 2019 12:09
--- NOTE | 2019-02-04 12:13 | PDOC3 ---
Discharge Summary Visit Information Date of Admission: Feb 01, 2019 Date of Discharge: February 04, 2019 Admitting Diagnosis: right knee osteoarthritis Final Diagnosis right knee osteoarthritis aftercare after right total knee arthroplasty Brief Hospital Course Allergies Allergies Coded Allergies Type Severity Reaction Last Updated Verified minocycline Allergy Severe 02/01/19 Yes rhubarb Allergy Severe Swelling 02/01/19 Yes tetracycline Allergy Severe 02/01/19 Yes adhesive tape Allergy Intermediate Rash 02/01/19 Yes amoxicillin Allergy Intermediate Hives 02/01/19 Yes latex Allergy Intermediate Rash 02/01/19 Yes loratadine Allergy Intermediate Rash 02/01/19 Yes nickel Allergy Intermediate Rash 02/01/19 Yes I S O L A T I O N *CONTACT* Allergy Unknown 02/01/19 Yes Sulfa (Sulfonamide Antibiotics) Adverse Reaction Intermediate flu like symptoms 02/01/19 Yes cetirizine Adverse Reaction Intermediate palpitations 02/01/19 Yes fluticasone Adverse Reaction Intermediate 02/01/19 Yes furosemide Adverse Reaction Intermediate Nausea and Vomiting 02/01/19 Yes nebivolol Adverse Reaction Intermediate 02/01/19 Yes prednisone Adverse Reaction Intermediate 02/01/19 Yes Vital Signs Vital Signs Date Time Temp Pulse Resp B/P (MAP) Pulse Ox O2 Delivery O2 Flow Rate FiO2 02/04/19 10:17 20 02/04/19 08:30 73 128/62 02/04/19 08:26 95 Room Air 02/04/19 06:24 98.7 98.7 Lab Results Laboratory Tests Test 02/03/19 03:47 02/03/19 16:27 02/04/19 07:27 Hemoglobin 10.4 g/dL (12.0-15.5) 10.3 g/dL (12.0-15.5) Hematocrit 31.4 % (36.0-47.0) 31.3 % (36.0-47.0) Mean Corpuscular Hemoglobin Concent 33 g/dL (31-37) 33 g/dL (31-37) Glucose (Fingerstick) 108 mg/dL (70-99) Laboratory Tests Test 02/03/19 16:27 02/04/19 07:27 Glucose (Fingerstick) 108 mg/dL (70-99) Hemoglobin 10.3 g/dL (12.0-15.5) Hematocrit 31.3 % (36.0-47.0) Mean Corpuscular Hemoglobin Concent 33 g/dL (31-37) Brief Hospital Course 63 year old who presented with knee osteoarthritis, for elective total knee arthroplasty. The patient underwent total knee arthroplasty under general anesthesia the day of admission. Perioperative antibiotics and DVT prophylaxis were used. Postoperatively physical therapy and case management were consulted. The patient progressed and is stable for discharge. Discharge Information Condition at Discharge: Stable Follow Up: Weeks Disposition/Orders: D/C to Home Scheduled Acetaminophen (Tylenol), 1,000 MG PO BID, (Reported) Ascorbic Acid (Vitamin C), 1,000 MG PO DAILY, (Reported) Aspirin (Aspirin), 81 MG PO HS, (Reported) Aspirin (Aspirin Ec), 325 MG PO BID Calcium Phosphate Trib/Vit D3 (Calcium + Vitamin D3 Gummies), 1 EACH PO HS, (Reported) Cholecalciferol (Vitamin D3) (Vitamin D3), 6,000 UNIT PO DAILY, (Reported) Cholecalciferol (Vitamin D3) (Vitamin D3), 3,000 UNIT PO HS, (Reported) Diphenhydramine Hcl (Diphenhydramine Hcl), 25 MG PO QHS, (Reported) Ferrous Sulfate (Ferrous Sulfate), 325 MG PO DAILY, (Reported) Fexofenadine Hcl (Fexofenadine Hcl), 180 MG PO DAILY, (Reported) Levothyroxine Sodium (Levothyroxine Sodium), 0.5 TAB PO DAILYAC, (Reported) Losartan Potassium (Losartan Potassium), 25 MG PO DAILY, (Reported) Meloxicam (Mobic), 1 TAB PO for surgery, (Reported) Multivitamin (Multivitamins), 1 EACH PO DAILY, (Reported) Oxybutynin Chloride (Oxybutynin Chloride), 2.5 MG PO BID, (Reported) Simvastatin (Simvastatin), 20 MG PO HS, (Reported) [selenium husk], 1 CAP PO DAILY, (Reported) Scheduled PRN Calcium Carbonate (Tums), 300 MG PO PRN DAILY PRN for indigestion, (Reported) Colestipol Hcl (Colestipol Hcl), 1 GM PO PRN TID PRN for DIARRHEA, (Reported) Dicyclomine Hcl (Dicyclomine Hcl), 20 MG PO PRN QID PRN for SEE COMMENTS, (Reported) Meclizine Hcl (Meclizine Hcl), 25 MG PO PRN PRN for DIZZINESS, (Reported) Oxycodone/Apap 5-325 (Percocet 5-325 Mg Tablet ), 2 TAB PO PRN Q4HRS PRN for PAIN Patient Instructions Patient Instructions Patient Instructions Continue to WBAT with walker. Keep dressing dry and intact. F/U with Dr. Miles in 10-14 days. Call for appointment. Physical therapy for TKA Continue DVT prophylaxis with EC-ASA 325 mgs po BID for 30 days CONNIE MILES MD February 04, 2019 12:13
[2019-02-04] MEDS ORDERED: ASPI325T11 PO (12:17)
[2019-02-04] MEDS ORDERED: OXYC1TAB15 PO (12:17)
[2019-02-04 14:17] VITALS: BP 110/58
[2019-02-04] MEDS: CALCIUM CARBONATE 500 MG TAB.CHEW PO PRN (15:49)
--- NOTE | 2019-02-04 16:52 | NUR ---
us completed awaiting results. no complaints at this time.
--- NOTE | 2019-02-04 17:02 | RAD ---
Right lower extremity venous ultrasound, 02/04/2019 : History: Right calf tenderness Duplex evaluation including grayscale, color flow and spectral Doppler analysis was performed. The femoral and popliteal veins show no filling defects to suggest DVT. The visualized deep veins in the right calf are unremarkable. IMPRESSION: There is no sonographic evidence of deep vein thrombosis in the right lower extremity Electronically signed by: Asif Malin MD (02/04/2019 4:59 PM) [facility]
--- NOTE | 2019-02-04 17:06 | NUR ---
ultrasound of lower extremity for a blood clot is negative
--- NOTE | 2019-02-04 17:19 | NUR ---
reviewed written discharge instructions regarding restrictions to activities of daily living such as bathing, medications driving incisional care and care of the zay dressing. script for outpatient therapy and pain medication given. verbalized understanding
== END 2019-02-04 18:00 | disposition home or self-care (01) | DRG 470 ==
LOC: OPSVCIP 05:53 → 4 SOUTHEST 11:30
PROVIDERS: ADMIT Orthopaedic Surgery; ATTEND Orthopaedic Surgery
PROC: 0SRC069 Replacement of Right Knee Joint with Oxidized Zirconium on Polyethylene Synthetic Substitute, Cemented, Open Approach (ICD-10-PCS; principal; 2019-02-01 07:10)
DX: M17.11 Unilateral primary osteoarthritis, right knee (principal); I10 Essential (primary) hypertension; E78.5 Hyperlipidemia, unspecified; K58.9 Irritable bowel syndrome, unspecified; J45.909 Unspecified asthma, uncomplicated; H91.90 Unspecified hearing loss, unspecified ear; E66.9 Obesity, unspecified; I48.0 Paroxysmal atrial fibrillation; K76.0 Fatty (change of) liver, not elsewhere classified; M41.9 Scoliosis, unspecified; M23.203 Derangement of unspecified medial meniscus due to old tear or injury, right knee; Z96.651 Presence of right artificial knee joint; Z87.01 Personal history of pneumonia (recurrent); Z68.39 Body mass index [BMI] 39.0-39.9, adult; Z91.040 Latex allergy status; Z88.2 Allergy status to sulfonamides; Z88.8 Allergy status to other drugs, medicaments and biological substances; Z91.048 Other nonmedicinal substance allergy status; Z90.49 Acquired absence of other specified parts of digestive tract; Z90.722 Acquired absence of ovaries, bilateral; Z79.899 Other long term (current) drug therapy; Z90.79 Acquired absence of other genital organ(s)
CPT/HCPCS: 36415; 73560; 82962; 85014; 85018; 86850; 86900; 86901; 88305; 88311; 93971; A7015; C1713; J0171; J0360; J1100; J1885; J2001; J2250; J2270; J2405; J2704; J2795; J3010; J3260; J3370; J3490; J7030; J7120; Q0162; Q0163; 97116; 97150; 97530; 97535; C1769

== ENCOUNTER → 2020-03-14 | Outpatient (CLI) | payer OTHER ==
[2019-02-04 08:30] VITALS: BP 128/62
[~2020-03-14] MED LIST changes: +ASPI325T11 PO; +HYDR12.58 PO; +MECL-75 PO; -MECL25TA3 PO; +MELO15TA6 PO; +MULT-445 PO; -MULT1TAB52 PO; +OLOP2.5D12 EACHEYE; +OXYB5TAB10 PO; -OXYB5TAB7 PO; +OXYC1TAB15 PO; +SIMV20TA18 PO; -SIMV20TA3 PO; -TOBRAMYCIN POWDER 1.2 GM VIAL. ONE; -VANCOMYCIN 1 GM VIAL. ONE
--- NOTE | 2020-03-14 13:38 | EKG ---
[facility] [address] [place] [address] Test Date: 2020-03-14 Test Time: 13:37:08 Pat Name: TERESA FLOWERS Department: Room: Gender: F Staff Reporter: : 1955 Requested By: CONNIE HERNANDEZ Order Number: [id number] Reading MD: Kameron Son Measurements Intervals Loman Rate: 71 P: 40 DE: 168 QRS: 36 QRSD: 82 T: 36 QT: 392 QTc: 426 Interpretive Statements SINUS RHYTHM. MINIMAL NONSPECIFIC ST-T WAVE CHANGES. Electronically Signed On 03-15-2020 15:38:23 CDT by Kameron Son
[2020-03-14 13:40] LABS: BASO % 0 % (0-3); EOS # 0.3 x10^3/uL (0.0-0.7); EOS % 4 % (0-3); HEMATOCRIT 38.5 % (36.0-47.0); HEMOGLOBIN 12.7 g/dL (12.0-15.5); LYMPH # 2.4 x10^3/uL (1.0-4.8); LYMPH % 33 % (24-48); MEAN CORPUSCULAR HEMOGLOBIN 30 pg (25-35); MEAN CORPUSCULAR HGB CONC 33 g/dL (31-37); MEAN CORPUSCULAR VOLUME 90 fL (79-100); MONO # 0.5 x10^3/uL (0.0-1.1); MONO % 7 % (0-9); NEUT % 56 % (31-73); PLATELET COUNT 296 x10^3/uL (140-400); RED BLOOD COUNT 4.27 x10^6/uL (3.50-5.40); RED CELL DISTRIBUTION WIDTH 13.2 % (11.5-14.5); WHITE BLOOD COUNT 7.2 x10^3/uL (4.0-11.0)
[2020-03-14 14:22] LABS: PROTHROMBIN TIME PATIENT 12.9 SEC (11.7-14.0)
[2020-03-14 14:25] LABS: ALBUMIN 3.9 g/dL (3.4-5.0); C-REACTIVE PROTEIN 4.1 mg/L (0-3.3); CREATININE 0.8 mg/dL (0.6-1.0); GFR 72.7; POTASSIUM 3.7 mmol/L (3.5-5.1)
--- NOTE | 2020-03-14 15:07 | RAD ---
CHEST PA LATERAL History: Reason: PRE OP KNEE REPLACEMENT ON 03/27/20 / Spl. Instructions: / History: Comparison: 01/10/2019 two-view chest x-ray exam. Findings: Frontal and lateral views of the chest were obtained. The cardiomediastinal silhouette is normal. Pulmonary vasculature is normal. There is a small pulmonary nodule at the right midlung region between the seventh and eighth rib posterior shadows. No infiltrate. No pleural effusion or pneumothorax is seen. There is no acute bone abnormality. IMPRESSION: Small nodule between the right seventh and eighth rib posterior shadows on the frontal view. CT chest with contrast is recommended for more definitive assessment. Low Electronically signed by: Demian Sinha MD (03/14/2020 3:05 PM) [id number]
[2020-03-15 02:08] LABS: HEMOGLOBIN A1C 5.9 % (4.8-5.6)
== END | disposition home or self-care (01) ==
LOC: SURGPAT 12:27
PROVIDERS: ATTEND Orthopaedic Surgery
DX: Z01.818 Encounter for other preprocedural examination (principal); M17.12 Unilateral primary osteoarthritis, left knee; R91.1 Solitary pulmonary nodule
CPT/HCPCS: 36415; 71046; 80048; 82040; 82306; 83036; 85025; 85610; 85730; 86140; 87641; 93005

== ENCOUNTER → 2020-03-19 | Outpatient (CLI) | payer OTHER ==
[2019-02-04 08:30] VITALS: BP 128/62
[~2020-03-19] MED LIST changes: +CONTRAST GIVEN. MC PRN; +IOHEXOL 300 MG/ML 100ML VIAL. IV ONE
--- NOTE | 2020-03-19 11:04 | RAD ---
CT of the chest with contrast 03/19/2020 Indication: [, Lung nodule on chest radiograph dated March 14, 2020] Comparison study: [Chest radiograph March 14, 2020. CT chest June 15, 2008.] Technique: Multidetector CT imaging of the chest was performed following the administration of intravenous contrast. Multiple reconstructions including 3-D maximum intensity projection reconstructions were created on an independent workstation and reviewed. Findings: Heart size is normal. No significant pericardial effusion is seen. No pathologic mediastinal adenopathy is identified. No focal consolidation or infiltrate is seen. There is a 3 mm noncalcified nodule in the left lower lobe. Nodules not definitively identified on comparison exam. The opacity on the recent chest radiograph does not correlate to a nodule may have been artifactual due to overlapping vascular structures. No pneumothorax or pleural effusion is seen. No acute osseous abnormality is identified. Limited visualization of the upper abdomen demonstrates no acute abnormality. Impression: 1. 3 mm left lower lobe pulmonary nodule. The patient is considered low risk no specific follow-up is required. Patient is considered high risk follow-up CT of the chest in one year recommended. 2. No right-sided pulmonary nodules are identified 3. No acute cardiopulmonary process Pulmonary Nodule Followup: Fleischner Society recommendations (Radiology 2005; 237; 395-400): In a low risk patient: 4mm or less - No follow up required. >4-6mm- 12 month follow up, if unchanged, no further follow up. >6-8mm- 6-12 month follow up, then at 18-24 months if no change. >8mm- 3, 9, 24 month follow up or consideration of PET/CT. In a high risk patient: <4mm - 12 month follow up, if unchanged then no further follow up. >4-6mm- 6-12 month follow up, then at 18-24 months if no change. >6-8mm- 3-6 month follow up, then at 9-12 months and [address] DOSING PQRS STATEMENT: One or more of the following individualized dose reduction techniques were utilized for this examination: 1. Automated exposure control 2. Adjustment of the mA and/or kV according to patient size 3. Use of iterative reconstruction technique Electronically signed by: Steven Waldron MD (03/19/2020 11:01 AM) [id number]
== END | disposition home or self-care (01) ==
LOC: CT 10:02
PROVIDERS: ATTEND Orthopaedic Surgery
DX: R91.1 Solitary pulmonary nodule (principal); M25.562 Pain in left knee
CPT/HCPCS: 71260

== ENCOUNTER → 2020-03-22 | Outpatient (CLI) | payer OTHER ==
[2019-02-04 08:30] VITALS: BP 128/62
[~2020-03-22] MED LIST changes: -CONTRAST GIVEN. MC PRN; -IOHEXOL 300 MG/ML 100ML VIAL. IV ONE
== END | disposition home or self-care (01) ==
LOC: LAB 13:39
PROVIDERS: ATTEND Orthopaedic Surgery
DX: Z11.59 Encounter for screening for other viral diseases (principal)
CPT/HCPCS: 36415; U0003